=== PATIENT | female | born 1965 | race Caucasian/White ===

== ENCOUNTER 2017-07-06 14:25 | Emergency (ER) | payer MEDICARE, MEDICAID ==
[2017-07-06 14:56] LABS: #Basophils 0.1 thou/uL (0.0-0.2); #Eosinphils 0.1 thou/uL (0.0-0.7); #Lymphocytes 1.7 thou/uL (1.20-3.40); #Monocytes 0.5 thou/uL (0.11-0.59); #Neutrophils 5.1 thou/uL (1.40-6.50); %Eosinophils 1.2 % (0.0-10.0); %Lymphocytes 22.3 % (21.0-51.0); %Monocytes 6.8 % (0.0-10.0); Hematocrit 41.2 % (36.0-47.0); Red Blood Cell (RBC) Count 4.35 mill/uL (4.20-5.40); White Blood Cell (WBC) Count 7.4 thou/uL (4.8-10.8)
--- NOTE | 2017-07-06 15:18 | CT ---
HEAD CT NONCONTRAST: Date: 07/06/17 COMPARISON: 05/05/09. INDICATION: Altered mental status. FINDINGS: No acute intracranial hemorrhage, mass effect, midline shift, or ventriculomegaly. Imaged paranasal sinuses are clear. IMPRESSION: No acute intracranial abnormalities. POS: [facility]
[2017-07-06 15:22] LABS: Troponin I Less than 0.010 ng/mL (< 0.028)
[2017-07-06 15:22] LABS: ALT (SGPT) 11 U/L (8-55); AST (SGOT) 15 U/L (5-34); Alkaline Phosphatase 94 U/L (40-150); Anion Gap 15 mmol/L (10-20); BUN (Urea Nitrogen) 11 mg/dL (9.8-20.1); Bilirubin, Total 0.5 mg/dL (0.2-1.2); CK (CPK) 143 U/L (29-168); Calc. Creatinine Clearance 0 mL/min (70-130); Calcium 9.7 mg/dL (7.8-10.44); Carbon Dioxide 24 mmol/L (22-29); Chloride 105 mmol/L (98-107); Estimated GFR-MDRD 50; Globulin 3.4 g/dL (2.4-3.5); Lipase 15 U/L (8-78); Protein, Total 7.9 g/dL (6.0-8.3)
[2017-07-06] MEDS ORDERED: Lorazepam 2 MG/ML VIAL ONE ×2 (15:33→22:34)
[2017-07-06] MEDS ORDERED: risperiDONE 1 MG TAB ONE (15:33)
--- NOTE | 2017-07-06 15:40 | RAD ---
CHEST ONE VIEW: 07/06/17 HISTORY: Altered mental status. COMPARISON: Chest two view from 2011. FINDINGS: Lungs without focal air space opacity, pneumothorax or effusion. Nodular density projects over the a nterior right lateral 7th rib may represent a nipple shadow. IMPRESSION: 1. No acute intrathoracic abnormality. 2. Nodular density projects under the anterior lower right 7th rib. May represent prominent nip ple shadow. Followup with nipple markers can be obtained if clinical symptoms suggest. 3. Likely interposition of colon between the stomach and left hemidiaphragm and less likely pn eumoperitoneum. Recommend correlation for focal tenderness of the abdomen. POS: [facility]
[2017-07-06 16:49] LABS: Bilirubin Negative (Negative); Blood, Urine Negative (Negative); Glucose, Urine (Dipstick) Negative (Negative); Ketone, Urine Negative (Negative); Nitrite Negative (Negative); Protein, Urine (Dipstick) Negative (Neg-Trace); Urobilinogen 0.2 mg/dL (0.2-1.0)
[2017-07-06 16:59] LABS: Amphetamine Not Detected (NotDetected); Methadone Not Detected (NotDetected); Methamphetamine Not Detected (NotDetected)
[2017-07-07] MEDS ORDERED: traZODone HCl 50 MG TAB ONE (01:33)
[2017-07-07] MEDS ORDERED: Lorazepam 2 MG/ML VIAL ONE (09:06)
== END 2017-07-07 09:18 ==
LOC: ERS 14:25
DX: F30.9 Manic episode, unspecified (principal); F22 Delusional disorders; F41.9 Anxiety disorder, unspecified; F17.210 Nicotine dependence, cigarettes, uncomplicated; Z79.899 Other long term (current) drug therapy
CPT/HCPCS: 36415; 70450; 71010; 80053; 80306; 81003; 81015; 82550; 82553; 83690; 84484; 85025; 93005; 94760; 96372; J2060

== ENCOUNTER 2020-11-09 05:42 | Day surgery (SDC) | payer MEDICARE, MEDICAID ==
[2020-11-05 12:44] VITALS: BMI 21.1
[2020-11-09] MEDS ORDERED: Midazolam HCl 2 mg/2 ml Vial ONE (07:12)
[2020-11-09] MEDS ORDERED: Fentanyl 100 MCG/2 ML VIAL ONE ×3 (07:16→09:19)
[2020-11-09] MEDS ORDERED: Morphine 2 MG/ML VIAL ONE (07:16)
--- NOTE | 2020-11-09 08:44 | OP ---
DATE OF PROCEDURE: 11/09/2020 [employer] MARK[employer] MACHINE: Denis. PROCEDURES PERFORMED: L4-L5 laminectomy, posterolateral arthrodesis, pedicle screw instrumentation L4-L5, demineralized bone matrix, local morselized autograft. DESCRIPTION OF PROCEDURE: The patient was brought to the operating room and intubated. She was rolled in prone position on gel-filled chest rolls. An incision was made exposing L4 and L5 and the level was confirmed by x-ray. We performed complete L5 and inferior L4 laminectomies completely decompressing the L4-L5 interspace. We next placed pedicle screws at right L4 and right L5 using lateral fluoroscopic guidance and the position was confirmed by x-ray. The tirso was secured between the screws, connected by nuts, and distraction was placed across L4-L5. Nuts were final tightened. The wound was then extensively irrigated. MAC hemostasis was secured. A combination of demineralized bone matrix, local morselized autograft was laid over the lamina on posterolateral surfaces for the purpose of arthrodesis. Vancomycin powder was applied and the wound was then closed in anatomic layers. Job ID: [id number]
[2020-11-09] MEDS ORDERED: Ketorolac Tromethamine 30 MG/ML VIAL ONE (10:11)
[2020-11-09] MEDS ORDERED: diphenhydrAMINE 50 MG/ML VIAL ONE (10:11)
[2020-11-09] MEDS ORDERED: PROPOFOL 200 MG/20 ML VIAL ONE (10:11)
[2020-11-09] MEDS ORDERED: Lidocaine 1% PF 5 ML VIAL ONE (10:11)
[2020-11-09] MEDS ORDERED: Ondansetron PF 4 MG/2 ML Vial ONE (10:11)
[2020-11-09] MEDS ORDERED: Glycopyrrolate 0.2 MG/ML 5 ML SYRINGE ONE (10:11)
[2020-11-09] MEDS ORDERED: Dexamethasone 20 MG/5 ML VIAL ONE (10:11)
[2020-11-09] MEDS ORDERED: Rocuronium Bromide 10 MG/ML (10ML VIAL) ONE (10:11)
[2020-11-09] MEDS ORDERED: HYDROcodone/Acetaminophen 5/325 mg Tablet ONE (10:37)
== END 2020-11-09 11:55 | disposition home or self-care (01) ==
LOC: SDC 05:42
PROVIDERS: ATTEND Neurological Surgery
PROC: 0SG00AJ Fusion of Lumbar Vertebral Joint with Interbody Fusion Device, Posterior Approach, Anterior Column, Open Approach (ICD-10-PCS; principal; 2020-11-09)
PROC: 01NB0ZZ Release Lumbar Nerve, Open Approach (ICD-10-PCS; 2020-11-09)
DX: M48.062 Spinal stenosis, lumbar region with neurogenic claudication (principal); M43.16 Spondylolisthesis, lumbar region; M51.36 Other intervertebral disc degeneration, lumbar region; M41.9 Scoliosis, unspecified; M71.38 Other bursal cyst, other site
CPT/HCPCS: 20930; 20936; 22633; 22840; 22853; 76000; C1713 ×3; C1768; J2270; J0690; J1100; J1200; J1885; J2250; J2405; J2704; J3010; J3370; J3490

== ENCOUNTER 2020-11-24 12:44 | Outpatient (CLI) | payer MEDICARE, MEDICAID ==
--- NOTE | 2020-11-24 13:34 | RAD ---
LUMBAR SPINE SERIES: 11/24/20 HISTORY: Follow-up surgery. COMPARISON: 04/05/15 exam. Unilateral pedicle screws have been placed on the right side at the L4-5 level. Disc narrowing is see n at this level. There is also moderate disc narrowing at L2-3. IMPRESSION: 1. Right unilateral pedicle screws at L4-5. 2. Arthritic changes and scoliotic change of the spine. POS: [facility]
== END 2020-11-24 12:45 | disposition home or self-care (01) ==
LOC: TBSIIMAG 12:44
PROVIDERS: ATTEND Neurological Surgery
DX: M48.062 Spinal stenosis, lumbar region with neurogenic claudication (principal); M47.816 Spondylosis without myelopathy or radiculopathy, lumbar region; M41.9 Scoliosis, unspecified
CPT/HCPCS: 72100

== ENCOUNTER 2021-02-04 11:11 | Outpatient (CLI) | payer MEDICARE, MEDICAID | END 2021-02-04 11:12 | disposition home or self-care (01) | LOC: BICMAMMO 11:11 | PROVIDERS: ATTEND Family Medicine | DX: Z12.31 Encounter for screening mammogram for malignant neoplasm of breast (principal) | CPT/HCPCS: 77063; 77067 ==

== ENCOUNTER 2021-03-04 12:19 | Outpatient (CLI) | payer MEDICARE, MEDICAID | END 2021-03-04 12:20 | disposition home or self-care (01) | LOC: BICULT 12:19 | PROVIDERS: ATTEND Family Medicine | DX: N28.1 Cyst of kidney, acquired (principal) | CPT/HCPCS: 76770 ==

== ENCOUNTER 2021-08-03 13:24 | Outpatient (CLI) | payer MEDICARE, MEDICAID | END 2021-08-03 13:25 | disposition home or self-care (01) | LOC: TBSIIMAG 13:24 | PROVIDERS: ATTEND Neurological Surgery | DX: M43.16 Spondylolisthesis, lumbar region (principal); M47.816 Spondylosis without myelopathy or radiculopathy, lumbar region; M41.9 Scoliosis, unspecified | CPT/HCPCS: 72100 ==

== ENCOUNTER 2022-05-30 13:35 | Outpatient (CLI) | payer MEDICAID, MEDICARE ==
[2020-11-04 15:38] LABS: Hemoglobin 12.8 g/dL (12.0-16.0); Mean Corpuscular HGB CONC 32.5 G/DL (32.0-36.0); Mean Corpuscular Hemoglobin 29.9 PG (27.0-33.0); Mean Corpuscular Volume 92.1 fl (80.0-100.0); Mean Platelet Volume 9.8 fl (7.4-10.4); Platelet Count 276 10x3/uL (130-400); RBC Distribution Width 12.4 % (11.5-14.5); Red Blood Cell (RBC) Count 4.28 10x6/uL (3.90-5.20)
[2020-11-04 15:44] LABS: Anion Gap 11 mmol/L (10-20); BUN (Urea Nitrogen) 22 mg/dL (9.8-20.1); Calc. Creatinine Clearance 0 mL/min (70-130); Carbon Dioxide 27 mmol/L (22-29); Chloride 102 mmol/L (98-107); Glucose 95 mg/dL (70-105); Sodium 136 mmol/L (136-145)
== END 2022-05-30 13:36 | disposition home or self-care (01) ==
LOC: RAD 13:35
PROVIDERS: ATTEND Internal Medicine Critical Care Medicine
DX: Z01.818 Encounter for other preprocedural examination (principal); R06.09 Other forms of dyspnea; Z20.822 Contact with and (suspected) exposure to COVID-19
CPT/HCPCS: 80048; 85027; 93005; U0003; U0005; 93010

== ENCOUNTER 2022-06-22 11:00 | Inpatient (IN) | payer OTHER, MEDICAID ==
[2022-06-24 10:19] VITALS: BMI 20.3
[2022-06-27] MEDS ORDERED: Cyclobenzaprine 10 MG TAB PO PRN (07:24)
[2022-06-27] MEDS ORDERED: Promethazine 25 MG TAB PO PRN (07:24)
[2022-06-27] MEDS ORDERED: Milk Of Magnesia 30 ML UDCUP PO PRN (07:24)
[2022-06-27] MEDS ORDERED: Ondansetron PF 4 MG/2 ML Vial IVP PRN (07:24)
[2022-06-27] MEDS ORDERED: Morphine 2 MG/ML VIAL SLOW IVP PRN (07:24)
[2022-06-27] MEDS ORDERED: Acetaminophen/Codeine 30-300mg Tablet PO PRN (07:24)
[2022-06-27] MEDS ORDERED: diphenhydrAMINE 50 MG/ML VIAL IVP PRN (07:24)
[2022-06-27] MEDS ORDERED: Bisacodyl 10 MG SUPP PR PRN (07:24)
[2022-06-27] MEDS ORDERED: Midazolam HCl 2 mg/2 ml Vial ONE ×2 (09:03→09:06)
[2022-06-27] MEDS ORDERED: fentaNYL Citrate/PF 100 MCG/2 ML SYRINGE ONE (09:06)
[2022-06-27] MEDS ORDERED: Sodium Chloride 0.9% 100 ML ONE ×2 (09:07→14:37)
[2022-06-27] MEDS ORDERED: CEFAZOLIN 2 GM VIAL ONE ×2 (09:07→14:36)
[2022-06-27] MEDS ORDERED: PROPOFOL 200 MG/20 ML VIAL ONE (09:15)
[2022-06-27] MEDS ORDERED: Rocuronium Bromide 10 MG/ML (10ML VIAL) ONE (09:15)
[2022-06-27] MEDS ORDERED: Ondansetron PF 4 MG/2 ML Vial ONE (09:15)
[2022-06-27] MEDS ORDERED: Dexamethasone 20 MG/5 ML VIAL ONE (09:15)
[2022-06-27] MEDS ORDERED: Ketorolac Tromethamine 30 MG/ML VIAL ONE (09:15)
[2022-06-27] MEDS ORDERED: HYDROmorphone 2 MG/ML VIAL ONE (10:11)
[2022-06-27] MEDS ORDERED: SUGAMMADEX SODIUM 200 MG/2 ML VIAL ONE (10:11)
[2022-06-27] MEDS ORDERED: Ondansetron HCl/PF 4 MG/2 ML Vial IVP PRN (10:49)
[2022-06-27] MEDS ORDERED: Promethazine HCl 25 MG/ML VIAL IM PRN (10:49)
[2022-06-27] MEDS ORDERED: Promethazine HCl 25 MG/ML VIAL IVPB PRN (10:49)
[2022-06-27] MEDS ORDERED: HYDROmorphone 2 MG/ML VIAL SLOW IVP PRN (10:49)
[2022-06-27] MEDS ORDERED: Fentanyl 100 MCG/2 ML VIAL ONE ×2 (11:00→11:18)
[2022-06-27] MEDS ORDERED: HYDROmorphone 0.5 MG/0.5 ML SYRINGE ONE ×2 (11:47→12:18)
[2022-06-27] MEDS ORDERED: Cyclobenzaprine 10 MG TAB ONE (12:46)
[2022-06-27] MEDS ORDERED: CEFAZOLIN 1 GM VIAL ONE (14:36)
[2022-06-27] MEDS: CEFAZOLIN 2 GM in Sodium Chloride 0.9% 100 ML IVPB SCH ×2 (14:39→22:18)
[2022-06-27] MEDS: Acetaminophen/Codeine 30-300mg Tablet PO PRN (15:38)
[2022-06-27] MEDS ORDERED: Prevnar 13-Val Conj/PF 0.5 ML SYRINGE IM ONE (16:15)
[2022-06-27] MEDS: Gabapentin 300 MG CAP PO SCH ×3 (16:48→20:06)
[2022-06-27] MEDS: Varenicline Tartrate 0.5 MG TAB PO SCH ×2 (16:49→20:08)
[2022-06-27] MEDS: Sodium Chloride 0.9% 1,000 ML IV SCH (17:09)
[2022-06-28] MEDS: Sodium Chloride 0.9% 1,000 ML IV SCH (02:44)
[2022-06-28] MEDS: Acetaminophen/Codeine 30-300mg Tablet PO PRN (07:44)
[2022-06-28] MEDS: Gabapentin 300 MG CAP PO SCH (08:22)
[2022-06-28] MEDS: Varenicline Tartrate 0.5 MG TAB PO SCH (08:23)
[2022-06-28 08:35] VITALS: BP 113/76; TEMP 98.8
== END 2022-06-28 09:50 | disposition home or self-care (01) | DRG 460 ==
LOC: SURG A 06-27 06:43 → MSONC 06-27 15:02
PROVIDERS: ADMIT Neurological Surgery; ATTEND Neurological Surgery
PROC: 0SG0071 Fusion of Lumbar Vertebral Joint with Autologous Tissue Substitute, Posterior Approach, Posterior Column, Open Approach (ICD-10-PCS; principal; 2022-06-27)
PROC: 0SG3071 Fusion of Lumbosacral Joint with Autologous Tissue Substitute, Posterior Approach, Posterior Column, Open Approach (ICD-10-PCS; 2022-06-27)
PROC: 0SP00AZ Removal of Interbody Fusion Device from Lumbar Vertebral Joint, Open Approach (ICD-10-PCS; 2022-06-27)
DX: T84.296A Other mechanical complication of internal fixation device of vertebrae, initial encounter (principal); M43.16 Spondylolisthesis, lumbar region; Z20.822 Contact with and (suspected) exposure to COVID-19; Z23 Encounter for immunization; X58.XXXA Exposure to other specified factors, initial encounter; F41.9 Anxiety disorder, unspecified; F32.A Depression, unspecified; G89.29 Other chronic pain
CPT/HCPCS: 76000; C1713; C1776; J0690; J1100; J1170; J1885; J2250; J2405; J2704; J3010; J3370; J3490; J7050

== ENCOUNTER 2022-06-22 11:16 | Outpatient (CLI) | payer MEDICARE, OTHER | END 2022-06-22 11:17 | disposition home or self-care (01) | LOC: LABBT 11:16 | PROVIDERS: ATTEND Neurological Surgery | DX: Z01.818 Encounter for other preprocedural examination (principal); Z20.822 Contact with and (suspected) exposure to COVID-19 | CPT/HCPCS: 87811; 93005; 93010 ==

== ENCOUNTER 2022-07-06 14:02 | Outpatient (CLI) | payer OTHER | END 2022-07-06 14:03 | disposition home or self-care (01) | LOC: BICMAMMO 14:02 | PROVIDERS: ATTEND Family Medicine | DX: Z12.31 Encounter for screening mammogram for malignant neoplasm of breast (principal) | CPT/HCPCS: 77063; 77067 ==

== ENCOUNTER 2022-07-06 14:39 | Outpatient (CLI) | payer OTHER, MEDICAID | END 2022-07-06 14:40 | disposition home or self-care (01) | LOC: RAD 14:39 | PROVIDERS: ATTEND Internal Medicine Critical Care Medicine | DX: R06.09 Other forms of dyspnea (principal) | CPT/HCPCS: 71046 ==

== ENCOUNTER 2022-07-13 08:51 | Outpatient (CLI) | payer OTHER | END 2022-07-13 08:52 | disposition home or self-care (01) | LOC: TBSIIMAG 08:51 | PROVIDERS: ATTEND Neurological Surgery | DX: M43.16 Spondylolisthesis, lumbar region (principal); M47.816 Spondylosis without myelopathy or radiculopathy, lumbar region; Z98.890 Other specified postprocedural states | CPT/HCPCS: 72100 ==